=== PATIENT | male | born 1950 | race Hispanic/Latino ===

== ENCOUNTER 2020-08-09 15:54 | Inpatient (IN) | payer OTHER ==
[~2020-08-09] VITALS: Ht 172.7 cm; Wt 56.0 kg
[2020-08-09] MEDS ORDERED: NALOXONE HCL 0.4 MG/1 ML ML ONE (16:23)
[2020-08-09 16:40] LABS: CREATININE 0.9 mg/dL (0.5-1.5)
[2020-08-09] MEDS ORDERED: 0.9%NACL 1000ML 2,000 ML IV ONE (16:42)
[2020-08-09 16:47] LABS: ALBUMIN 3.6 g/dL (3.5-5.0); BILIRUBIN,TOTAL 0.8 mg/dL (0.2-1.0); TOTAL PROTEIN, SERUM 7.3 g/dL (6.0-8.3)
[2020-08-09 16:55] LABS: BASOPHILS % (AUTO) 0.4 % (0.0-5.0); EOSINOPHILS % (AUTO) 5.9 % (0.0-8.0); HEMATOCRIT 38.6 % (42-54); LYMPHOCYTES % (AUTO) 18.6 % (21.0-51.0); MEAN CORPUSCULAR HEMOGLOBIN 29.7 pg (27.0-33.0); MEAN CORPUSCULAR HGB CONC 33.7 g/dL (32.0-36.0); MEAN CORPUSCULAR VOLUME 88.1 fL (79-99); MONOCYTES % (AUTO) 5.9 % (3.0-13.0); NEUTROPHILS % (AUTO) 68.8 % (40.0-77.0); PLATELET COUNT (AUTO) 295 K/uL (130-400); RED BLOOD CELL COUNT(AUTO) 4.38 MIL/uL (4.50-6.20); RED CELL DISTRIBUTION WIDTH 12.2 % (11.0-15.5); WHITE BLOOD COUNT (AUTO) 5.4 K/uL (4.8-10.8)
[2020-08-09 16:56] LABS: CREATINE KINASE, TOTAL 122 U/L (21-232); MYOGLOBIN 22 ng/mL (10-92); TROPONIN I < 0.04 ng/mL (0.00-0.06)
[2020-08-09 16:59] LABS: INR 1.09 (0.85-1.15); PROTHROMBIN TIME 11.8 SEC (9.6-11.6)
[2020-08-09 17:00] LABS: PARTIAL THROMBOPLASTIN TIME 22.6 SEC (26.3-35.5)
[2020-08-09 17:01] LABS: ABG BASE EXCESS 1.4 mmol/L (-2.0-3.0); ABG HCO3 25.6 mmol/L (21.0-28.0); ABG OXYGEN SATURATION 97.7 % (95.0-99.0); ABG PCO2 39 mmHg (35-48)
[2020-08-09 17:08] LABS: CRP QUANTITATIVE < 2.00 mg/L (0.00-9.0)
[2020-08-09 17:42] LABS: APPEARANCE,URINE Clear (CLEAR); BILIRUBIN,URINE Negative (NEGATIVE); COLOR,URINE Yellow (YELLOW); GLUCOSE, URINE (UA) Negative (NEGATIVE); KETONES,URINE Negative (NEGATIVE); LEUKOCYTE ESTERASE ,URINE Negative (NEGATIVE); NITRATE,URINE Negative (NEGATIVE); OCCULT BLOOD,URINE Negative (NEGATIVE); PH,URINE 7.5 (5.0-8.0); PROTEIN,URINE Negative (NEGATIVE)
[2020-08-09 17:49] LABS: AMPHET/METH SCREEN,URINE NEGATIVE (NEGATIVE); BARBITURATE SCREEN, URINE NEGATIVE (NEGATIVE); BENZODIAZEPINES SCREEN,URINE NEGATIVE (NEGATIVE); CANNABINOID SCREEN,URINE NEGATIVE (NEGATIVE); COCAINE SCREEN,URINE NEGATIVE (NEGATIVE); OPIATE SCREEN,URINE NEGATIVE (NEGATIVE); PHENCYCLIDINE SCREEN,URINE NEGATIVE (NEGATIVE)
[2020-08-09] MEDS ORDERED: IOHEXOL-350 75 ML VIAL IV ONE (17:49)
[2020-08-09] MEDS ORDERED: ACETAMINOPHEN 325 MG TAB ONE (17:53)
[2020-08-09] MEDS ORDERED: ZOSYN 3.375GM+NS 50ML 50 ML IV ONE (19:33)
[2020-08-09] MEDS ORDERED: DIPHENHYDRAMINE HCL 25 MG CAPSULE PO PRN (20:00)
[2020-08-09] MEDS: LACTATED RINGERS 1000ML 1,000 ML IV SCH (20:00)
[2020-08-09] MEDS ORDERED: ONDANSETRON 4MG INJ IV PRN (20:00)
[2020-08-09] MEDS ORDERED: LACTULOSE 20 GM/30 ML UDCUP PO PRN (20:00)
[2020-08-09] MEDS ORDERED: DiphenhydrAMINE HCL 50 MG/ML VIAL IV PRN (20:00)
[2020-08-09] MEDS ORDERED: NITROGLYCERIN 0.4 MG SL TAB SL PRN (20:00)
[2020-08-09] MEDS ORDERED: MAG/ALUM/SIMETH 30 ML UDCUP PO PRN (20:00)
[2020-08-09] MEDS ORDERED: GUAIFENESIN-DM 200/20 MG 10 ML PO PRN (20:00)
[2020-08-09] MEDS: ASPIRIN 325MG EC TAB PO SCH (20:00)
[2020-08-09] MEDS ORDERED: ACETAMINOPHEN 325 MG TAB PO PRN ×2 (20:00)
[2020-08-09] MEDS ORDERED: ASPIRIN 325MG EC TAB PO ONE (20:50)
[2020-08-09] MEDS ORDERED: LACTATED RINGERS 1000ML 1,000 ML IV ONE (20:50)
[2020-08-09] MEDS: ZOSYN 3.375GM+NS 50ML 50 ML IV SCH (21:00)
[2020-08-09] MEDS ORDERED: LORAZEPAM 2 MG/ML 1 ML VIAL ONE (23:23)
[2020-08-10] VITALS (7 sets, daily range): BP systolic 102–126; BP diastolic 52–69
[2020-08-10 05:00] LABS: BASOPHILS % (AUTO) 0.1 % (0.0-5.0); EOSINOPHILS % (AUTO) 0.1 % (0.0-8.0); HEMATOCRIT 37.6 % (42-54); LYMPHOCYTES % (AUTO) 3.3 % (21.0-51.0); MEAN CORPUSCULAR HEMOGLOBIN 29.8 pg (27.0-33.0); MEAN CORPUSCULAR HGB CONC 34.8 g/dL (32.0-36.0); MEAN CORPUSCULAR VOLUME 85.5 fL (79-99); MONOCYTES % (AUTO) 3.5 % (3.0-13.0); NEUTROPHILS % (AUTO) 92.7 % (40.0-77.0); PLATELET COUNT (AUTO) 271 K/uL (130-400); RED CELL DISTRIBUTION WIDTH 11.9 % (11.0-15.5); WHITE BLOOD COUNT (AUTO) 15.6 K/uL (4.8-10.8)
[2020-08-10 05:09] LABS: CREATININE 0.9 mg/dL (0.5-1.5); POTASSIUM 3.5 mmol/L (3.5-5.1)
[2020-08-10] MEDS: ZOSYN 3.375GM+NS 50ML 50 ML IV SCH ×3 (05:27→21:15)
[2020-08-10] MEDS ORDERED: MAG/ALUM/SIMETH 30 ML UDCUP PO SCH (07:45)
[2020-08-10] MEDS ORDERED: MEMA5TAB42 PO (07:50)
[2020-08-10] MEDS ORDERED: SERT-438 PO (07:50)
[2020-08-10] MEDS ORDERED: ATOR20TA65 PO (07:50)
[2020-08-10] MEDS ORDERED: DOXA1TAB2 PO (07:50)
[2020-08-10] MEDS ORDERED: DONE10TA43 PO (07:50)
[2020-08-10] MEDS: ENOXAPARIN SODIUM 40 MG/0.4 ML SYRINGE SQ SCH (10:00)
[2020-08-10] MEDS: ASPIRIN 325MG EC TAB PO SCH (10:00)
[2020-08-10] MEDS: LACTATED RINGERS 1000ML 1,000 ML IV SCH (10:01)
[2020-08-10] MEDS: DOXAZOSIN MESYLATE 2 MG TABLET PO SCH (15:17)
[2020-08-10] MEDS: MEMANTINE HCL 5 MG TABLET PO SCH ×2 (15:18→21:15)
[2020-08-10] MEDS: SERTRALINE HCL 50 MG TABLET PO SCH (15:18)
[2020-08-10] MEDS ORDERED: HYDROXYZINE 25 MG TABLET PO PRN (16:15)
[2020-08-10] MEDS: ATORVASTATIN 20 MG TABLET PO SCH (17:10)
[2020-08-10] MEDS ORDERED: DONEPEZIL HCL 5 MG TAB PO SCH (21:00)
[2020-08-11] MEDS ORDERED: HALOPERIDOL INJ 5 MG/ML VIAL ONE (02:05)
[2020-08-11] MEDS ORDERED: LORAZEPAM 2 MG/ML 1 ML VIAL ONE (02:06)
[2020-08-11 03:00] VITALS: BP 100/45
[2020-08-11] MEDS ORDERED: HALOPERIDOL INJ 5 MG/ML VIAL IM PRN (03:00)
[2020-08-11] MEDS ORDERED: LORAZEPAM 2 MG/ML 1 ML VIAL IVP PRN (03:00)
[2020-08-11 05:10] LABS: BASOPHILS % (AUTO) 0.1 % (0.0-5.0); EOSINOPHILS % (AUTO) 0.2 % (0.0-8.0); HEMATOCRIT 33.8 % (42-54); LYMPHOCYTES % (AUTO) 7.9 % (21.0-51.0); MEAN CORPUSCULAR HEMOGLOBIN 29.4 pg (27.0-33.0); MEAN CORPUSCULAR HGB CONC 33.7 g/dL (32.0-36.0); MEAN CORPUSCULAR VOLUME 87.1 fL (79-99); MONOCYTES % (AUTO) 6.9 % (3.0-13.0); NEUTROPHILS % (AUTO) 84.6 % (40.0-77.0); PLATELET COUNT (AUTO) 226 K/uL (130-400); RED BLOOD CELL COUNT(AUTO) 3.88 MIL/uL (4.50-6.20); RED CELL DISTRIBUTION WIDTH 12.4 % (11.0-15.5)
[2020-08-11 05:15] VITALS: BP 100/50
[2020-08-11 05:32] LABS: ALBUMIN 3.1 g/dL (3.5-5.0); BILIRUBIN,TOTAL 1.2 mg/dL (0.2-1.0); CREATININE 0.9 mg/dL (0.5-1.5); POTASSIUM 3.5 mmol/L (3.5-5.1); TOTAL PROTEIN, SERUM 6.2 g/dL (6.0-8.3)
[2020-08-11] MEDS: ZOSYN 3.375GM+NS 50ML 50 ML IV SCH ×2 (06:38→14:06)
[2020-08-11 08:00] VITALS: BP 104/51
[2020-08-11] MEDS: SERTRALINE HCL 50 MG TABLET PO SCH (09:00)
[2020-08-11] MEDS: HYDROXYZINE 25 MG TABLET PO SCH ×2 (11:10→14:00)
[2020-08-11] MEDS: ENOXAPARIN SODIUM 40 MG/0.4 ML SYRINGE SQ SCH (11:10)
[2020-08-11] MEDS: ASPIRIN 325MG EC TAB PO SCH (11:11)
[2020-08-11] MEDS: DOXAZOSIN MESYLATE 2 MG TABLET PO SCH (11:11)
[2020-08-11] MEDS: MEMANTINE HCL 5 MG TABLET PO SCH (11:11)
[2020-08-11 12:00] VITALS: BP 102/53
[2020-08-11 16:59] VITALS: BP 141/54
[2020-08-11] MEDS: ATORVASTATIN 20 MG TABLET PO SCH (17:17)
[2020-08-11] MEDS ORDERED: HYDROXYZINE 25 MG TABLET PO SCH (21:00)
== END 2020-08-11 18:30 | disposition home or self-care (01) | DRG 371 ==
LOC: EDH 15:54 → EDBD 15:54 → OBSVTOIN 19:51 → EDHIP 19:51 → 3AH 08-10 00:14
PROVIDERS: ADMIT Family Medicine; ATTEND Family Medicine
DX: A04.9 Bacterial intestinal infection, unspecified (principal); G93.41 Metabolic encephalopathy; K56.7 Ileus, unspecified; G30.9 Alzheimer's disease, unspecified; F02.80 Dementia in other diseases classified elsewhere, unspecified severity, without behavioral disturbance, psychotic disturbance, mood disturbance, and anxiety; I10 Essential (primary) hypertension; Z20.822 Contact with and (suspected) exposure to COVID-19; G47.00 Insomnia, unspecified; F41.1 Generalized anxiety disorder; F43.20 Adjustment disorder, unspecified; M43.6 Torticollis
CPT/HCPCS: 36415; 36600; 70450; 71045; 74177; 80048; 80053; 80305; 81003; 82140; 82550; 82803; 82948; 83605; 83735; 83874; 83880; 84145; 84484; 85025; 85610; 85730; 86140; 86900; 86901; 87040; 87088; 87426; 93005; G0378; J1630; J1650; J2060; J2310; J2543; J7030; J7120; Q9967; U0003